=== PATIENT | female | born 1955 ===

== ENCOUNTER 2020-12-21 08:00 | Outpatient (CLI) | payer OTHER | END 2020-12-21 08:30 | disposition home or self-care (01) | LOC: PPH VACUNA 08:00 | DX: Z23 Encounter for immunization (principal) ==

== ENCOUNTER 2020-12-21 08:17 | Outpatient (CLI) | payer OTHER | END 2020-12-21 08:19 | disposition home or self-care (01) | LOC: NUCLEAR 08:17 | PROVIDERS: ATTEND General Practice | DX: C54.1 Malignant neoplasm of endometrium (principal) | CPT/HCPCS: 78815; A9552 ==

== ENCOUNTER 2020-12-21 11:26 | Outpatient (CLI) | payer OTHER | END 2020-12-21 11:34 | disposition home or self-care (01) | LOC: MAMO-SONO 11:26 | PROVIDERS: ATTEND General Practice | DX: N64.59 Other signs and symptoms in breast (principal); Z12.31 Encounter for screening mammogram for malignant neoplasm of breast ==

== ENCOUNTER 2021-01-11 16:00 | Outpatient (CLI) | payer OTHER | END 2021-01-11 16:30 | disposition home or self-care (01) | LOC: PPH VACUNA 16:00 | PROVIDERS: ATTEND Emergency Medicine Pediatric Emergency Medicine | DX: Z23 Encounter for immunization (principal) ==

== ENCOUNTER 2021-01-26 10:39 | Outpatient (CLI) | payer OTHER | END 2021-01-26 10:47 | disposition home or self-care (01) | LOC: MAMO-SONO 10:39 | PROVIDERS: ATTEND Obstetrics & Gynecology Gynecologic Oncology | DX: R92.1 Mammographic calcification found on diagnostic imaging of breast (principal); C54.1 Malignant neoplasm of endometrium; R92.8 Other abnormal and inconclusive findings on diagnostic imaging of breast ==